=== PATIENT | female | born 1995 | race Caucasian/White ===

== ENCOUNTER 2018-03-30 08:42 | Inpatient (IN) | payer OTHER ==
[2018-03-30 10:53] LABS: HEMATOCRIT 37.1 % (36.0-47.0); HEMOGLOBIN 12.8 g/dl (12.0-15.5); MEAN CORPUSCULAR HEMOGLOBIN 32.5 pg (27.0-33.0); MEAN CORPUSCULAR HGB CONC 34.5 g/dl (32.0-36.5); MEAN CORPUSCULAR VOLUME 94.2 fl (80.0-96.0); PLATELET COUNT, AUTOMATED 200 10^3/uL (150-450); RED BLOOD COUNT 3.94 10^6/uL (4.00-5.40); RED CELL DISTRIBUTION WIDTH 12.7 % (11.5-14.5); WHITE BLOOD COUNT 12.1 10^3/uL (4.0-10.0)
[2018-03-30 11:25] LABS: ALBUMIN/GLOBULIN RATIO 0.73 (1.00-1.93); ALKALINE PHOSPHATASE 200 U/L (45-117); ALT/SGPT 14 U/L (12-78); ANION GAP 12 MEQ/L (8-16); AST/SGOT 21 U/L (7-37); BILIRUBIN,TOTAL 0.2 MG/DL (0.2-1.0); BLOOD UREA NITROGEN 12 MG/DL (7-18); CALCIUM LEVEL 9.2 MG/DL (8.5-10.1); CARBON DIOXIDE LEVEL 22 MEQ/L (21-32); CHLORIDE LEVEL 106 MEQ/L (98-107); CREATININE FOR GFR 0.85 MG/DL (0.55-1.30); GLUCOSE, FASTING 82 MG/DL (70-100); POTASSIUM SERUM 4.5 MEQ/L (3.5-5.1); SODIUM LEVEL 140 MEQ/L (136-145); TOTAL PROTEIN 7.1 GM/DL (6.4-8.2)
[2018-03-30 11:26] LABS: TOTAL PROTEIN,RANDOM URINE 36.5 MG/DL (0.0-12.0)
[2018-03-30 11:31] LABS: AMPHETAMINES URINE REFLEX NEGATIVE (NEGATIVE); BARBITURATES URINE REFLEX NEGATIVE (NEGATIVE); BENZODIAZEPINES URINE REFLEX NEGATIVE (NEGATIVE); CANNABINOIDS URINE REFLEX NEGATIVE (NEGATIVE); COCAINE METABOLITE URINE REFLE NEGATIVE (NEGATIVE); METHADONE URINE REFLEX NEGATIVE (NEGATIVE); OPIATES URINE REFLEX NEGATIVE (NEGATIVE); PHENCYCLIDINE URINE REFLEX NEGATIVE (NEGATIVE)
[2018-03-30] MEDS ORDERED: FENTANYL 2MCG/ML ROPIVACAINE 0.2% IN 0.9% NACL 200ML IVBAG As Ordered (11:38)
[2018-03-30] MEDS: LACTATED RINGER'S 1000 ML IV (12:20)
[2018-03-30] MEDS: LR 1,000 ML IV ×2 (12:21→13:58)
[2018-03-30] MEDS ORDERED: ePHEDrine SULFATE 25 MG/5 ML(5MG/ML) SYRINGE IV ×2 (14:00)
[2018-03-30] MEDS ORDERED: ROPIVACAINE HCL IVBAG 200 ML EPIDURAL (14:00)
[2018-03-30] MEDS ORDERED: diphenhydrAMINE INJ 50MG/ML VIAL (J1200) IV ×2 (14:00)
[2018-03-30] MEDS ORDERED: NALOXONE INJ 0.4 MG/1 ML VIAL (J2310) IV ×2 (14:00)
[2018-03-30] MEDS ORDERED: EPIDURAL COMMENT XX ×2 (14:00)
[2018-03-30] MEDS ORDERED: LACTATED RINGER'S 1000 ML IV ×2 (14:00)
[2018-03-30] MEDS ORDERED: ONDANSETRON 4MG/2ML VIAL (J2405) IV ×2 (14:00)
[2018-03-30] MEDS ORDERED: FENTANYL/ROPIVACAINE/NACL BAG 200 ML EPIDURAL (14:00)
[2018-03-30] MEDS ORDERED: EPIDURAL/PCA KEYS XX ×2 (14:00)
[2018-03-30] MEDS ORDERED: REFRIGERATOR IV KEYS XX ×2 (14:00)
[2018-03-30] MEDS ORDERED: OXYTOCIN 30 UNITS IN 0.9% NaCl 500ML IV BAG (J2590) As Ordered (14:17)
[2018-03-30] MEDS: OXYTOCIN DRIP 30 UNITS in APPROPRIATE DILUENT 1 EA IV (16:29)
[2018-03-30] MEDS: DOCUSATE SODIUM 100 MG CAP PO (20:27)
[2018-03-30] MEDS: DIBUCAINE 1% OINTMENT 30GM TOP (20:27)
[2018-03-30] MEDS: PRENATAL VITAMINS CHEWABLE TABLET PO (20:27)
[2018-03-31] MEDS: PRENATAL VITAMINS CHEWABLE TABLET PO (07:38)
[2018-03-31] MEDS: IBUPROFEN 800 MG TAB PO (07:39)
[2018-03-31] MEDS: MEASLES,MUMPS,RUBELLA VACCINE INJ (MMR-II) (90707) SC (19:29)
[2018-03-31] MEDS: RHOGAM 300 MCG (1500 IU) INJ (J2790) IM (19:29)
[2018-03-31] MEDS: DOCUSATE SODIUM 100 MG CAP PO (19:48)
[2018-03-31] MEDS: ACETAMINOPHEN 500 MG TAB PO (19:49)
[2018-04-01] MEDS: ACETAMINOPHEN 500 MG TAB PO (05:50)
[2018-04-01] MEDS: PRENATAL VITAMINS CHEWABLE TABLET PO (08:04)
== END 2018-04-01 11:30 | disposition home or self-care (01) | DRG 775 ==
LOC: M LDO 08:42 → M LDI 09:30 → M OBS 18:58
PROVIDERS: Student in an Organized Health Care Education/Training Program
PROC: 10E0XZZ Delivery of Products of Conception, External Approach (ICD-10-PCS; principal; 2018-03-30)
PROC: 0HQ9XZZ Repair Perineum Skin, External Approach (ICD-10-PCS; 2018-03-30)
DX: O99.02 Anemia complicating childbirth (principal); O69.1XX0 Labor and delivery complicated by cord around neck, with compression, not applicable or unspecified; Z37.0 Single live birth; Z3A.39 39 weeks gestation of pregnancy; D64.9 Anemia, unspecified; Z79.899 Other long term (current) drug therapy; O70.0 First degree perineal laceration during delivery